=== PATIENT | male | born 1950 | race Caucasian/White ===

== ENCOUNTER 2019-03-29 20:38 | Inpatient (IN) | payer OTHER ==
[~2019-03-29] VITALS: Ht 172.7 cm; Wt 97.1 kg
[~2019-03-29 20:38] MED LIST: ACTOS 30 MG TAB30 M1 PO; AMARYL4 MG PO; ASPIR 8181 MG PO; ASPIRIN325 PO; BYDUREON P2 MG/0.65 SUBQ; BYETTA PEN 11 PENIN1 INJECTION; BYETTA PEN 51 PENIN1 SUBQ; CELEXA40 MG PO; CIPRODEX OTIC7.5 ML OTIC; EFFIENT10 MG PO; GLUCOPHAGE1000 MG PO; GLUCOPHAGE500 MG PO; JARDIANCE10 MG PO; JARDIANCE25 MG PO; LEXAPRO 10 MG T10 M1 PO; LEXAPRO20 MG PO; LIPITOR40 MG PO; LISINOPRIL20 MG PO; MICRONASE2.5 MG PO; MIRAPEX0.125 MG PO; PAXIL10 MG; PLAVIX 75 MG TA75 M1 PO; RANEXA500 MG PO; SIMVASTATIN40 MG PO; TOPROL XL25 MG PO
[2019-03-29 20:45] VITALS: BP 90/52
[2019-03-29] MEDS ORDERED: EFFEXOR 5050 MG/1 T1 PO (21:03)
[2019-03-29] MEDS ORDERED: VENTOLIN HFA 1818 GM INH (21:03)
[2019-03-29] MEDS ORDERED: TRAZODONE HCL100 MG PO (21:03)
[2019-03-29 21:33] LABS: HEMATOCRIT 28.6 % (42.0-52.0); HEMOGLOBIN 9.6 gm/dL (14.0-18.0); MCH 31.9 pg (26.0-34.0); MCHC 33.5 g/dL (28.0-37.0); MCV 95.3 fL (80.0-100.0); PLATELET COUNT 197 thou/uL (150-400); RDW 15.9 % (10.5-14.5); WBC 4.2 thou/uL (4.0-11.0)
[2019-03-29 21:37] LABS: ANION GAP 8 mmol/L (7-16); BUN 28 mg/dL (7-18); CALCIUM 9.4 mg/dL (8.5-10.1); CHLORIDE 100 mmol/L (98-107); CO2 26 mmol/L (21-32); CREATININE 1.1 mg/dL (0.7-1.3); GLUCOSE 242 mg/dL (74-106); POTASSIUM 4.1 mmol/L (3.5-5.1); SODIUM 134 mmol/L (136-145)
[2019-03-29 21:38] LABS: URINE BILIRUBIN NEGATIVE (Negative); URINE BLOOD NEGATIVE (Negative); URINE CLARITY CLEAR; URINE COLOR YELLOW; URINE GLUCOSE-RANDOM* 3+ (Negative); URINE KETONES NEGATIVE (Negative); URINE LEUKOCYTES-REFLEX NEGATIVE (Negative); URINE NITRITE-REFLEX NEGATIVE (Negative); URINE PROTEIN (DIPSTICK) NEGATIVE (Negative); URINE SPECIFIC GRAVITY <= 1.005 (1.005-1.035); URINE UROBILINOGEN 0.2 E.U./dl (0.2-1.0)
[2019-03-29 21:46] LABS: AMP/METHAMP Negative (Negative); BARBITURATES Negative (Negative); BENZODIAZEPINES Negative (Negative); COCAINE Negative (Negative); METHADONE Negative (Negative); OPIATES Negative (Negative); PCP Negative (Negative)
[2019-03-29 21:47] LABS: ALBUMIN 3.1 g/dL (3.4-5.0); APTT 31.2 Seconds (24.5-32.8); MAGNESIUM 1.6 mg/dL (1.8-2.4); PROTIME 10.5 Seconds (9.3-11.4); SGOT 16 U/L (15-37); SGPT 24 U/L (30-65); TOTAL BILIRUBIN 0.5 mg/dL (<0.1-1.0); TOTAL PROTEIN 6.9 g/dL (6.4-8.2); TROPONIN-I <0.06 ng/mL (<0.06)
[2019-03-29 22:11] LABS: ABSOLUTE NEUTROPHILS 1.7 thou/uL (1.4-8.2); ATYPICAL LYMPHS 4 %
[2019-03-29 22:12] LABS: ANISOCYTOSIS 1+; POLYCHROMASIA OCCASIONAL
[2019-03-30] MEDS ORDERED: VENLAFAXINE HC150 M1 PO (02:40)
[2019-03-30 05:49] LABS: HEMATOCRIT 29.4 % (42.0-52.0); HEMOGLOBIN 9.9 gm/dL (14.0-18.0); MCHC 33.7 g/dL (28.0-37.0); MCV 95.2 fL (80.0-100.0); RBC 3.09 mil/uL (4.50-6.00); RDW 16.2 % (10.5-14.5); WBC 4.3 thou/uL (4.0-11.0)
[2019-03-30 06:00] LABS: MAGNESIUM 1.7 mg/dL (1.8-2.4)
[2019-03-30 07:35] LABS: CHOLESTEROL 98 mg/dL (<200); HDL CHOLESTEROL 40 mg/dL (>40); LDL CHOLESTEROL 43 mg/dL (<100); TC:HDL 2.5 Ratio (Not establshd); TRIGLYCERIDE 77 mg/dL (<150); VLDL 15 mg/dL (<40)
--- NOTE | 2019-03-30 08:18 | EKG ---
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 souza : 1950 Requested By: Myron Quintana Order Number: [id number] MD: Omid Bhatia Measurements Intervals [place] Rate: 80 P: 47 VA: 181 QRS: 21 QRSD: 89 T: 55 QT: 390 QTc: 450 Interpretive Statements Sinus rhythm Normal tracing Compared to ECG 08/27/2015 07:15:03 No significant change was found Electronically Signed On 03-30-2019 8:18:18 CDT by Omid Bhatia [email or web address] ��������������������������������������������� <ELECTRONICALLY SIGNED> ���������������������������������������� By: Omid Bhatia MD, [facility] ��������������������������������������������� 03/30/19 08 25 25 Omid Bhatia MD, FACC /EPI
[2019-03-30 09:13] VITALS: BP 157/92
--- NOTE | 2019-03-30 09:25 | NUR ---
DR DURHAM AT BEDSIDE AND REQUEST PT TO GO TO CCU AND PLACE ON TELEMETRY
[2019-03-30 12:10] VITALS: BP 148/55
[2019-03-30 13:40] VITALS: BP 124/53
--- NOTE | 2019-03-30 15:36 | NUR ---
PT ARRIVED TO UNIT AT APPROX 1400 FROM ED. PT IS ALERT AND ORIENTED X4, MONITORED ON TELE AND ABLE TO MAINTAIN 02 SAT >90 ON RA. DENIES PAIN AND SOA. ADMISSION COMPLETED. NAD NOTED AT THIS TIME. PATIENT STATES THAT HE FEELS THAT ALL SYMPTOMS THAT BROUGHT HIM HERE ARE CURRENTLY RESOLVED AND HE IS FEELING BACK TO HIS NORMAL BASELINE. VSS. WILL CONTINUE TO MONITOR.
[2019-03-30 16:23] VITALS: BP 129/75
--- NOTE | 2019-03-30 17:10 | 2DMMODE ---
[facility] [address] [place] [address] 2 D/M-MODE ECHOCARDIOGRAM Name: [address] Room #: 353-P [facility] IN [facility]#: [id number] ������������� Admission: 03/29/19 ������������� Attend Phys: Levi Soolrzano MD Discharge: ��� ������������� ��� Date of : 52 Date of Service: 03/30/19 1709 �� Report #: [id number] �������� ��������������������������������������������[id number] THIS REPORT FOR: //name// APPROVED REPORT Study performed: 03/30/2019 09:39:46 EXAM: Comprehensive 2D, Doppler, and color-flow Echocardiogram Patient Location: Bedside Room #: ER Status: routine BSA: 2.10 HR: 102 bpm BP: 148/55 mmHg Rhythm: NSR Other Information Study Quality: Adequate Risk Factors: Cardiac Risk Factors: Hyperlipidemia Indications COPD Diabetes Dizziness and Vertigo CAD Chest Pain Hypertension/HDD 2D Dimensions IVSd: 13.47 (7-11mm) LVOT Diam: 21.00 (18-24mm) LVDd: 37.77 mm PWd: 13.07 (7-11mm) Ascending Ao: 33.37 (22-36mm) LVDs: 26.72 (25-40mm) Aortic Root: 27.44 mm LV Single Plane 4CH: 58.23 % LV Single Plane 2CH: 53.04 % Biplane EF: 57.1 % Volumes Left Atrial Volume (Systole) Single Plane 4CH: 58.08 mL Single Plane 2CH: 76.38 mL LA ESV Index: 35.00 mL/m2 [facility] [place] [place] [address] 2 D/M-MODE ECHOCARDIOGRAM Name: [address] Room #: 353-P [facility] IN .R.#: [id number] ������������� Admission: 03/29/19 ������������� Attend Phys: Levi Solorzano MD Discharge: ��� ������������� ��� Date of : 52 Date of Service: 03/30/19 1709 �� Report #: [id number] �������� ��������������������������������������������[id number] Aortic Valve AoV Peak Irwin.: 3.51 m/s AO Peak Gr.: 49.17 mmHg LVOT Max P.63 mmHg AO Mean Gr.: 27.56 mmHg LVOT Mean P.07 mmHg AO V2 Mean: 2.40 m/s LVOT Max V: 0.95 m/s AO V2 VTI: 73.87 cm LVOT Mean V: 0.68 m/s SHANNON (VTI): 1.74 cm2 LVOT V1 VTI: 22.06 cm SHANNON Vmax: 0.98 cm2 AI Vmax: 3.78 m/s SV (LVOT): 79.87 mL AI Adair: 6.25 m/s2 AI PHT: 175.49 ms Mitral Valve E/A Ratio: 0.8 MV Decel. Time: 141.98 ms MV E Max Irwin.: 1.21 m/s MV A Irwin.: 1.58 m/s MV PHT: 41.17 ms IVRT: 58.82 ms Pulmonary Valve PV Peak Irwin.: 1.15 m/s PV Peak Gr.: 5.32 mmHg Tricuspid Valve RAP Estimate: 7.00 mmHg Left Ventricle The left ventricle is normal size. There is normal LV segmental wall motion. Mild to moderate concentric left ventricular hypertrophy. Left ventricular systolic function is normal. The left ventricular ejection fraction is within the normal range. LVEF is 55-60%. Mild diastolic dysfunction Right Ventricle The right ventricle is normal size. The right ventricular systolic function is normal. Atria Left atrium is mildly dilated. The right atrium size is normal. Aortic Valve Aortic valve is trileaflet, mildly sclerotic Mild aortic regurgitation. [address] [address] 2 D/M-MODE ECHOCARDIOGRAM Name: [address] [place] Room #: 353-P [facility] IN ..#: [id number] ������������� Admission: 03/29/19 ������������� Attend Phys: Levi Solorzano MD Discharge: ��� ������������� ��� Date of : 52 Date of Service: 03/30/19 1709 �� Report #: [id number] �������� ��������������������������������������������[id number] Mitral Valve The mitral valve is normal in structure. No mitral regurgitation. No evidence of mitral valve stenosis. Tricuspid Valve The tricuspid valve is normal in structure. There is no tricuspid valve regurgitation noted. Pulmonic Valve The pulmonary valve is normal in structure. There is no pulmonic valvular regurgitation. Great Vessels The aortic root is normal in size. Increased flow in ascending aorta. The peak velocity is 3.5 m/s with a maximum pressure gradient of 49 mmHg and a mean pressure gradient of 28 mmHg. IVC is normal in size and collapses >50% with inspiration. Pericardium There is no pericardial effusion. <Conclusion> Left ventricular systolic function is normal. There is normal LV segmental wall motion. LVEF is 55-60%. Mild diastolic dysfunction Left atrium is mildly dilated. Aortic valve is trileaflet, mildly sclerotic. Mild regurgitation, no stenosis. The mitral valve is normal in structure. No mitral regurgitation. Moderate velocity seen only on suprasternal views (3.5 m/s; Peak gradient 49 mmHg, mean gradient of 28 mmHg), unknown significance. There is no pericardial effusion. ��������������������������������������������� <ELECTRONICALLY SIGNED> ���������������������������������������� By: Omid Bhatia MD, [facility] ��������������������������������������������� 03/30/191708 08 08 Omid Bhatia MD, FACC /INF
[2019-03-30 19:03] VITALS: BP 122/79
[2019-03-31] VITALS (7 sets, daily range): BP systolic 122–154; BP diastolic 54–65
[2019-03-31 00:09] LABS: GLYCOHEMOGLOBIN (HGB A1C) 8.1 % (4.8-5.6)
--- NOTE | 2019-03-31 04:04 | NUR ---
PT MAKING PROGRESS TOWARDS GOALS. PT DENIES ANY COMPLAINT, DENIES ANY DIZZINESS. UP AD CATIE ABOUT THE ROOM. ENCOURAGED AND AGREED TO CALL IF ANY DIZZINESS OCCURS.
[2019-03-31 05:39] LABS: HEMATOCRIT 29.8 % (42.0-52.0); MCH 32.1 pg (26.0-34.0); MCHC 33.7 g/dL (28.0-37.0); MCV 95.3 fL (80.0-100.0); RBC 3.13 mil/uL (4.50-6.00); RDW 16.1 % (10.5-14.5); WBC 3.9 thou/uL (4.0-11.0)
--- NOTE | 2019-03-31 10:49 | NUR ---
care of pt assumed this am @ ~0700. pt noted to be awake this am, up to the bthrm to void, denies any co of n/v/d, pain or soa at this time. pt receiving ivf's w/o issues. pt w/ a good appetite for food and fluid today. pt noted to have a steady, balanced and coordinated gait, pt denies need to be a fall risk at this time. am rn informed by noc rn that he made the pt up ad matt on his shift. pt's at this am and would be the pt's ride home. pt is hopeful to dc today. dr. treviño request rn place a call to dr. lara re: 1) when will see pt and 2) do agree w/ dc today. call placed to neuro contract post office clerk , he states he will be at bs within the hour to talk w/ the pt.
--- NOTE | 2019-03-31 12:14 | NUR ---
ASSESSMENT: CM REVIEWED CHART AND MET WITH PATIENT AT THE BEDSIDE. PT IS ALERT AND ORIENTED X4. PT REPORTS LIVING IN A HOUSE WITH HIS SPOUSE. PT REPORTS IT IS A RANCH AND HE HAS NO STEPS HE HAS TO USE. PT REPORTS AMBULATING INDEPENDENTLY AND IS INDEPENDENT WITH ADLS. PT DENIES HAVING DME OR THE NEED FOR IT. CM DISCUSSED ROLE. PT DOES NOT ANTICIPATE ANY NEEDS AT DISCHARGE.
--- NOTE | 2019-03-31 15:09 | NUR ---
I have reviewed the documentation by GENA JAY from 03/31/19 to 03/31/19 and I concur with it. SCAR GUO
[2019-04-01 04:15] VITALS: BP 144/70
--- NOTE | 2019-04-01 05:17 | NUR ---
PT MAKING PROGRESS TOWARDS GOALS. PT UP ABOUT THE ROOOM WITHOUT ANY COMPLAINTS. DENIES ANY DIZZINESS OR LIGHTHEADEDNESS.
[2019-04-01 07:51] VITALS: BP 146/56
[2019-04-01 08:45] VITALS: BP 146/56
[2019-04-01 10:56] LABS: CALCIUM 9.4 mg/dL (8.5-10.1); CREATININE 0.9 mg/dL (0.7-1.3); POTASSIUM 3.9 mmol/L (3.5-5.1)
[2019-04-01 12:24] VITALS: BP 146/56
--- NOTE | 2019-04-01 12:30 | NUR ---
care of pt assumed this am @ ~0700. pt noted to be awake, ambulatory w/o concerns and anxious to see the drs today and go home today. pt w/ a good appetite for food and fluid at breakfast and lunch today. pt refused a shower this am. pt states that he feels "back to normal" today from his admission through er. pt denies co pain, no soa, and no n/v/d today.
--- NOTE | 2019-04-05 08:41 | HC ---
[facility] [place] [address] CONSULTATION Name: [address] Room #: 353-P [facility] IN ..#: [id number] Admission: 03/29/19 ������������������ Attend Phys: Serina Garcia MD Discharge: 04/01/19 ������������������ Date of : 52 Report #: [id number] THIS REPORT FOR: //name// CC: Yessi Solorzano DATE OF SERVICE: 03/30/2019 HISTORY OF PRESENT ILLNESS: This is a 68-year-old male patient who was evaluated by me for poorly defined history. I talked to Dr. Garcia who is a hospitalist and also talked to Dr. Fonseca, who is a truss builder and has known the patient in the past. For his neurological care, he goes to [facility] and sees Dr. Rock. Symptom he has is poorly defined. He indicates he has dizziness. He has several episodes of dizziness in a day. Movement of the neck is the aggravating factor. Whenever he tries to get up from the lying down position, he also has similar symptoms. He does not know if he has any cervical spine pathology, but he indicates that he has lumbar spine pathology and he used to see Pain Management for the epidurals and that the pain used to make him nauseous. Further evaluation of this dizziness, he indicated that he had vestibular testing done. He saw an ENT physician and subsequently he was referred to a neurologist because he was found to have vertebral artery stenosis. I do not know how bad it was and whether it was one sided or both sided. He indicated that he was mainly put on aspirin. He said he was working outside and he got dehydrated. He said his blood pressure fell and in fact his blood pressure was 90/52 when he came in. He did not feel good. He was probably ataxic at that time, but his symptoms are becoming better and his blood pressure has improved. His PT, OT consult is pending. REVIEW OF SYSTEMS: Positive for multiple problems. This patient has a history of cardiac disease . He also has a history of carotid disease. He had another carotid Doppler here. He has known stenosis of the carotid, but he never had any lateralize symptoms and he did not have any lateralize symptoms here either. He is on multiple medications. He is on aspirin. He is on statin. He is on Effexor. He is a diabetic and his blood sugar still appeared to be uncontrolled. I do not think he has a clearly defined history for seizure or stroke. He does not have any new eye, cardiac, respiratory, , musculoskeletal, constitutional, dermatological, hematological, psychiatric, throat, allergic symptom associated with present symptomatology. PAST MEDICAL HISTORY: Positive for similar episode for at least for a year. [facility] [address] [place] [address] CONSULTATION Name: [address] Room #: 353-P [facility] IN M.R.#: [id number] Admission: 03/29/19 ������������������ Attend Phys: Serina Garcia MD Discharge: 04/01/19 ������������������ Date of : 52 Report #: [id number] FAMILY HISTORY: Unremarkable. SOCIAL HISTORY: He says he does not abuse alcohol. PHYSICAL EXAMINATION: Indicates he is alert, responsive, able to follow simple command. His speech, concentration, fund of knowledge and memory is at his baseline. His cranial nerve examinations appear unremarkable. Strength, sensation, reflexes and tone is symmetrical. Txlkco-hk-nulz is unremarkable. I could not have a very good look at the patient's fundus. There is no meningeal sign. No thyroid mass. He is moderately built individual who does not have any dysmorphic features of eyes, ears and face. Cardiac examinations appear unremarkable. No respiratory difficulty or rhonchi was noticed. His blood pressure was low when he came in. His last blood pressure is 157/92, respiration is 18, pulse is 69, temperature is 97.8. LABORATORY DATA: His hemoglobin is only 9.9. His PT, PTT is okay. He did have a CT scan of the head, which showed no acute abnormality. Carotid Doppler report was noticed. IMPRESSION: If he has vertebral artery stenosis, it is possible with a drop in blood pressure, dehydration and low hemoglobin produced transient ischemic attack like symptoms from posterior fossa. Symptoms are better. It is unlikely to be stroke. That will be the presumptive diagnosis in this patient, although the symptoms are somewhat unusual. I discussed the situation with the patient. I discussed his options in that regard. I will repeat MRI to see if we can see any evidence for stroke. I will not proceed with CT angiogram because his BUN is still high, although becoming better and I will await for the MRI and MRA. I will also like to look at the results from the [facility] to see what they did. I think from neurological perspective if his MRI is okay and his record from [facility] does not demonstrate any overriding finding, I do not believe from neurological perspective much need to be done and if he does with PT, OT, I do not think I will do much at this time and let them follow up at . Dr. Flores will follow up this patient with you from tomorrow. I will also go ahead and get an MRI of the C-spine to make sure there is no pathology there because he keeps saying that he keeps having symptoms when he moves his neck. ��������������������������������������������� <ELECTRONICALLY SIGNED> ���������������������������������������� By: Zi Osuna MD ��������������������������������������������� 04/05/19 0809 [id number] [id number] Zi Osuna MD /angel
== END 2019-04-01 13:23 | disposition home or self-care (01) | DRG 99 ==
LOC: ER 20:38 → 3W 23:13 → EROBS 23:13 → 3W 03-30 13:17
PROVIDERS: Emergency Medicine; Nurse Practitioner Adult Health; Nurse Practitioner Family; Psychiatry & Neurology Neurology; ADMIT Internal Medicine
DX: G37.3 Acute transverse myelitis in demyelinating disease of central nervous system (principal); I65.22 Occlusion and stenosis of left carotid artery; M48.02 Spinal stenosis, cervical region; I10 Essential (primary) hypertension; J44.9 Chronic obstructive pulmonary disease, unspecified; I25.10 Atherosclerotic heart disease of native coronary artery without angina pectoris; E83.42 Hypomagnesemia; E78.00 Pure hypercholesterolemia, unspecified; E66.9 Obesity, unspecified; D64.9 Anemia, unspecified; S09.90XA Unspecified injury of head, initial encounter; E86.0 Dehydration; E11.65 Type 2 diabetes mellitus with hyperglycemia; I65.09 Occlusion and stenosis of unspecified vertebral artery; E78.5 Hyperlipidemia, unspecified; G47.33 Obstructive sleep apnea (adult) (pediatric); F12.90 Cannabis use, unspecified, uncomplicated; F41.9 Anxiety disorder, unspecified; I95.9 Hypotension, unspecified; E03.9 Hypothyroidism, unspecified; R09.89 Other specified symptoms and signs involving the circulatory and respiratory systems; Z68.32 Body mass index [BMI] 32.0-32.9, adult; Z87.442 Personal history of urinary calculi; Z88.6 Allergy status to analgesic agent; Z79.82 Long term (current) use of aspirin; Z79.899 Other long term (current) drug therapy; Z95.5 Presence of coronary angioplasty implant and graft; Z87.891 Personal history of nicotine dependence; W18.39XA Other fall on same level, initial encounter; Y93.89 Activity, other specified; Y92.89 Other specified places as the place of occurrence of the external cause; Y99.8 Other external cause status
CPT/HCPCS: 10080; 10879

== ENCOUNTER → 2019-04-28 | Outpatient (CLI) | payer OTHER ==
[~2019-04-28] VITALS: Ht 172.7 cm; Wt 97.5 kg
[~2019-04-28] MED LIST changes: +EFFEXOR 5050 MG/1 T1 PO; +TRAZODONE HCL100 MG PO; +VENLAFAXINE HC150 M1 PO; +VENTOLIN HFA 1818 GM INH
--- NOTE | ~2019-04-28 | DSS ---
[facility] [place] [address] SHORT STAY SUMMARY Name: [address] Room #: REG PARADISE SchulteMarianoToMariano#: [id number] Admission: 04/28/19 Attend Phys: River Fonseca MD, Discharge: Date of : 52 Report #: [id number] THIS REPORT FOR: //name// CC: River Jauregui MD DATE OF SERVICE: 04/28/2019 SHORT STAY SUMMARY HISTORY OF PRESENT ILLNESS: The patient is a 68-year-old male admitted for cardiac catheterization, has significant underlying chronic anemia, has some mild aortic valve stenosis, although the valve was crossed today. There is a prior stent placed to the diagonal branch in 2013. Nuclear stress testing suggested a moderate anterior lateral wall defect consistent with that branch. Ejection fraction is only mildly reduced. He has had elevated sugars. He has significant yeast infection from Jardiance due to the glucosuria and on circumcision. White count is 39,000. He denies fever, chills or any infectious etiology. No accelerating anginal type symptoms with exertion and this anemia. There is some mild symptomatology. No syncope or presyncope. MEDICATIONS: Have been on venlafaxine, Actos 30, glimepiride 4, aspirin, atorvastatin, Mirapex, metformin, which has been held; Jardiance, which has not been working because of the yeast infection; trazodone; and albuterol. PAST MEDICAL HISTORY: Positive for this known anemia, but not known to have leukocytosis. Coronary artery disease with a diagonal stent, hypertension, diabetes, hypercholesterolemia, renal artery stenosis, hypothyroidism. SOCIAL HISTORY: He is . No alcohol or tobacco. Does smoke some occasional weed. FAMILY HISTORY: Negative for premature coronary artery disease. REVIEW OF SYSTEMS: Negative except for the glucosuria, frequency of a yeast infection in the groin recently. Clarified, not currently on insulin. PHYSICAL EXAMINATION: GENERAL: Pleasant, alert. VITAL SIGNS: Blood pressure is 130/70, pulse 70. HEENT: Eyes reveal xanthelasmas. Pharynx is clear. NECK: Shows preserved upstrokes without JVD or bruits. LUNGS: Clear. CARDIOVASCULAR: Regular rate and rhythm, S1, S2. [facility] [address] [place] [address] SHORT STAY SUMMARY Name: [address] Room #: REG [facility].#: [id number] Admission: 04/28/19 Attend Phys: River Fonseca MD, Discharge: Date of : 52 Report #: [id number] ABDOMEN: Soft. No HSM or abdominal bruit. EXTREMITIES: Reveal no edema. His pulses diminished. NEUROLOGIC: Nonfocal. SKIN: There are what appears to be some inflammatory yeast infection, left groin. NEUROLOGIC: Intact. ASSESSMENT: 1. Coronary artery disease with abnormal stress test suggesting diagonal branch stenosis. 2. Diabetes. 3. Hypertension. 4. Leukocytosis, awaiting differential, suspect possibly chronic lymphocytic leukemia, there are some hematologic abnormality as a cause not infectious. 5. Hypothyroidism. RECOMMENDATIONS AND PLAN: Cardiac catheterization reveals flush occlusion of the diagonal branch off the LAD. It does not appear to be recent. It does not look favorable for possible intervention. Relatively asymptomatic large LAD system, which is intact, circ OM mildly diseased, dominant right long 50% mid vessel lesion. We will continue to treat this actively and medically. Awaiting differential. We will ask Hematology for their input and then possibly either admit or discharge later today. This anemia is chronic. Relatively asymptomatic, would like to have Hematology see him prior to discharge. We will followup scheduled in my office in 6 months. I will notify Dr. Huerta also this abnormality. Obviously, we need to get a better handle on his blood sugars. I would suspect there may be some component of noncompliance here. Thank you for assist in the care of this patient. No lifting for 48 hours. No lying in tub, Jacuzzi or poole for a week. Restart metformin in 48 hours. By: [id number] River Fonseca MD, FACC /nt
[2019-04-28 06:47] VITALS: BP 105/47
[2019-04-28 07:10] LABS: HEMATOCRIT 26.9 % (42.0-52.0); HEMOGLOBIN 8.9 gm/dL (14.0-18.0); MCH 30.7 pg (26.0-34.0); MCHC 32.9 g/dL (28.0-37.0); MCV 93.2 fL (80.0-100.0); PLATELET COUNT 206 thou/uL (150-400); RBC 2.89 mil/uL (4.50-6.00); RDW 16.2 % (10.5-14.5)
[2019-04-28 07:18] LABS: WBC 39.9 thou/uL (4.0-11.0)
[2019-04-28 07:26] LABS: CALCIUM 9.6 mg/dL (8.5-10.1); POTASSIUM 4.1 mmol/L (3.5-5.1)
[2019-04-28 09:06] LABS: ABSOLUTE NEUTROPHILS 4.4 thou/uL (1.4-8.2); ATYPICAL LYMPHS 2 %; BLASTS 26 %
[2019-04-28 09:07] LABS: PLATELET ESTIMATE NORMAL
--- NOTE | 2019-04-28 11:24 | NUR ---
Dr. Fonseca here at 0930 to speak with pt and re: high white blood cell count. We will wait for results and direction from Dr. Fonseca about follow up and further plan of care before discharge.
[2019-04-28 12:13] LABS: APTT 31.7 Seconds (24.5-32.8); INR 1.1; PROTIME 11.6 Seconds (9.3-11.4)
[2019-04-28 12:18] LABS: FIBRINOGEN 523.9 mg/dL (210-360)
--- NOTE | 2019-04-28 12:46 | NUR ---
Pt up ad matt. R groin stable. PT, PTT, INR, fibrinogen results called to Dr. Fonseca. Awaiting orders from Dr. Fonseca regarding admit versus discharge.
--- NOTE | 2019-05-02 07:34 | EKG ---
[place] [address] [email or web address] [place] [address] ELECTROCARDIOGRAM REPORT Name: [address] Room #: REG [facility]#: [id number] Admission: 04/28/19 Attend Phys: River Fonseca MD, Discharge: Date of : 52 Report #: [id number] THIS REPORT FOR: //name// [facility] Test Date: 2019-04-28 Test Time: 07:14:44 Pat Name: [address] Department: Room: Gender: Ostomy Rn: Tarah ZARAGOZA : 1950 Requested By: River Fonseca Order Number: [id number] MD: Omid Bhatia Measurements Intervals [place] Rate: 94 P: 62 CT: 163 QRS: 27 QRSD: 93 T: 40 QT: 374 QTc: 468 Interpretive Statements Sinus rhythm Probable anteroseptal infarct, old Minimal ST depression, lateral leads Compared to ECG 03/29/2019 21:26:14 ST (T wave) deviation now present Electronically Signed On 05-02-2019 7:34:05 CDT by Omid Bhatia [email or web address] <ELECTRONICALLY SIGNED> By: Omid Bhatia MD, [facility] 05/02/19 0734 3 3 Omid Bhatia MD, [facility] /EPI
[2019-05-02 10:06] LABS: HEMOGLOBIN 8.7 g/dL (13.0-17.7)
--- NOTE | 2019-05-02 17:30 | CATHLAB ---
[facility] [place] [address] INVASIVE PROCEDURE REPORT Name: [address] Room #: REG LUCILA Olivarez#: [id number] Admission: 04/28/19 Attend Phys: River Fonseca, Discharge: Date of : 52 Date of Service: 05/02/19 1730 Report #: [id number] THIS REPORT FOR: //name// APPROVED REPORT Study performed: 04/28/2019 07:39:05 Patient Details The patient is a 68 year-old male Event Personnel River Fonseca Stem Maker, Richa Fernández RN RN, Robin Winters RN, Krystian Morgan, Ernie Stephen Monitor Procedures Performed Left Heart Cath w/or w/o Coronaries [id number] [facility] , Right transradial approachAortogram Abdominal Peripheral Angio [id number] Indication Chest pain Procedure Narrative The Right Groin^ was infiltrated with 1% Lidocaine subcutaneous anesthesia. A PINNACLE 6FR Sheath #[id number] sheath was inserted into the RFA^. Coronary angiography was performed using coronary diagnostic catheters. The right coronary system was accessed and visualized with a JR4 catheter. The left coronary system was accessed and visualized with a JL4 catheter. The left ventricle was accessed and visualized with a Pigtail catheter. Closure device was deployed with a Fr MYNX CONTROL 6F/7F #[id number]. The patient tolerated the procedure well and there were no complications associated with the procedure. There was no hematoma. Intraoperative Conscious Sedation Sedation start time: 0845 Case end Time: 0900 Versed 1 mg Fluoro Time: 1.02 minutes Dose: DAP 3415.00 cGycm2 394 mGy Contrast Type and Amount: Omnipaque 130 ml Hemodynamics The aortic pressure is 132/47 mmHg with a mean of 82 mmHg. The left [facility] [address] [address] INVASIVE PROCEDURE REPORT Name: [address] Room #: [facility] Sher#: [id number] Admission: 04/28/19 Attend Phys: River Fonseca, Discharge: Date of : 52 Date of Service: 05/02/19 1730 Report #: [id number] ventricular pressure is 146/4 mmHg with a mean of mmHg. The left ventricular end diastolic pressure is 28 mmHg. Conclusion #1 normal left ventricular size and subtle anterior apical wall leg EF 55% #2 abdominal aorta is mildly ectatic with mild calcification no aneurysm noted iliac and renal arteries appear patent without significant disease #3 left main moderate size with mild irregularity giving rise to LAD and circumflex #4 LAD with mild disease there is a ostial proximal diagonal stent which is occluded. No filling of the diagonal is noted possibly be is some left to left collateral no evidence of the origin off of the LAD for this occluded at diagonal branch. #5 circumflex OM nondominant ostial lesion of 60-70% with otherwise preserved large OM with a mid OM branch lesion of 60-70% and large distal vessel widely patent #6 moderate to severe mid RCA disease the whole vessel is somewhat attenuated giving rise to a small PDA GUILLERMO would treat this medically. Recommendations and plan: Continue aggressive risk factor modification. 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 In light of this we will definitely continue medical therapy for coronary status Will follow-up with stress testing after further evaluation and treatment of acute leukemia. There is no definite target currently but multiple areas of moderate disease as described above. <ELECTRONICALLY SIGNED> By: River Fonseca MD, FACC 05/02/19 [phone] River Fonseca MD, FACC /INF
== END | disposition home or self-care (01) ==
LOC: CATH 06:14
PROVIDERS: Internal Medicine Cardiovascular Disease
DX: I25.10 Atherosclerotic heart disease of native coronary artery without angina pectoris (principal); I77.811 Abdominal aortic ectasia; I10 Essential (primary) hypertension; E11.9 Type 2 diabetes mellitus without complications; E78.00 Pure hypercholesterolemia, unspecified; G47.33 Obstructive sleep apnea (adult) (pediatric); J44.9 Chronic obstructive pulmonary disease, unspecified; E78.5 Hyperlipidemia, unspecified; I25.2 Old myocardial infarction; E66.09 Other obesity due to excess calories; F17.210 Nicotine dependence, cigarettes, uncomplicated; Z88.8 Allergy status to other drugs, medicaments and biological substances; Z79.82 Long term (current) use of aspirin; Z79.899 Other long term (current) drug therapy; Z98.890 Other specified postprocedural states